=== PATIENT | male | born 1975 | race Caucasian/White ===

== ENCOUNTER 2018-05-07 10:57 | Emergency (ER) | payer MEDICARE ==
[2018-05-07] MEDS ORDERED: Lidocaine 1%* 5 ML VIAL INJ ONE (11:00)
[2018-05-07] MEDS ORDERED: ceFAZolin 1 GM ADVAN(*) 1 GM in NS 0.9% 50 ML* 50 ML IVPB ONE (11:00)
[2018-05-07] MEDS ORDERED: Morphine VIAL* 4 MG/ML VIAL (1 ml vial) IV ONE ×3 (11:03→12:38)
[2018-05-07] MEDS ORDERED: Ondansetron INJ* 2 MG/ML VIAL IV ONE (11:04)
[2018-05-07] MEDS ORDERED: NS 0.9% 50 ML* 100 ML ONE (11:12)
[2018-05-07] MEDS ORDERED: ceFAZolin 1 GM VIAL(*) ONE (11:26)
[2018-05-07] MEDS ORDERED: Lidocaine 1% INJ* 10 MG/ML 30 ML SDV ONE (11:29)
[2018-05-07] MEDS ORDERED: Bupivacaine 0.25% SDV* 30 ML INJ ONE (12:37)
--- NOTE | 2018-05-07 12:51 | ED ---
Upper Extremity Pain - HPI Summary HPI Summary: 42-year-old male presents with left hand laceration after sticking his hand in a snowblower today. He states his last tetanus was a year ago. He has limited range of motion of his distal phalanx of his left finger. He is right-handed. He is currently disabled. He is not diabetic. He admits to some numbness and tingling in the tips of his fingers. he has multiple lacerations of 2-4th fingers that are actively bleeding. - History of Current Complaint Chief Complaint: EDLacSutureRecheck Stated Complaint: FINGER LAC Time Seen by Provider: 05/07/18 10:59 - Allergies/Home Medications Allergies/Adverse Reactions: Allergies Allergy/AdvReac Type Severity Reaction Status Date / Time MS Oxycodone [Oxycodone] Allergy Intermediate Rash Verified 08/14/14 08:50 PMH/Surg Hx/FS Hx/Imm Hx Endocrine/Hematology History: Denies: Hx Diabetes, Hx Thyroid Disease Cardiovascular History: Reports: Hx Hypertension - HISTORY OF, Hx Peripheral Vascular Disease - R/T SICKNESS IN 2010 UNKNOWN ETIOLOGY, LOWER EXTREMITIES ALWAYS COLD Denies: Hx Congestive Heart Failure Comment Only: Other Cardiovascular Problems/Disorders - CARDIAC DR "WATCHING MURMUR" PER PT Respiratory History: Reports: Other Respiratory Problems/Disorders - smoker Denies: Hx Asthma, Hx Chronic Obstructive Pulmonary Disease (COPD) Comment Only: Hx Sleep Apnea - SLEEP APNEA CONSULTATION SCHEDULED FOR 06/2012 GI History: Denies: Hx Ulcer, Other GI Disorders History: Reports: Hx Acute Renal Failure - 09/2009 after septic episode, Hx Dialysis - ok now, Hx Renal Disease Comment Only: Other Problems/Disorders - renal failure with dialysis 2009 now Musculoskeletal History: Reports: Other Musculoskeletal History - 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 Sensory History: Reports: Hx Contacts or Glasses - GLASSES Denies: Hx Hearing Aid Opthamlomology History: Reports: Hx Contacts or Glasses - GLASSES Neurological History: Reports: Other Neuro Impairments/Disorders - UNKNOWN CAUSE COMA Psychiatric History: Reports: Hx Anxiety - ON MEDICATION, Hx Depression - ON MEDICATION, Hx Post Traumatic Stress Disorder - Cancer History Hx Hematologic Symptoms: Yes - overwhelming sepsis 2010 with hospitalization - Surgical History Surgery Procedure, Year, and Place: 09/2010 BIOPSY OF INNER RIGHT LEG, 4 TOES AMPUTATED RIGHT FOOT, ONE TOE AMPUTATION ON LEFT FOOT, DEBRIDEMENT OF LEFT HEEL , [facility]. [id number] SKIN GRAFT X 4 ON LEFT HEEL AND ATTEMPT OF CLOSURE ON LEFT HEEL, [facility]. 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 Substance Use Type: Reports: Marijuana, Prescribed Substance Use Comment - Amount & Last Used: morphine IR 15mg q6h, and Morphine ER 15mg BID Smoking Status (MU): Light Every Day Tobacco Smoker Type: Cigarettes Amount Used/How Often: 1/2 ppd Length of Time of Smoking/Using Tobacco: 19 years Have You Smoked in the Last Year: Yes Review of Systems Negative: Fever Negative: Chest Pain Negative: Shortness Of Breath Positive: Other - lacerations of left hand All Other Systems Reviewed And Are Negative: Yes Physical Exam Triage Information Reviewed: Yes Vital Signs On Initial Exam: Initial Vitals Temp Pulse Resp BP Pulse Ox 97 F 64 24 121/71 97 05/07/18 11:00 05/07/18 11:00 05/07/18 11:00 05/07/18 11:00 05/07/18 11:00 Vital Signs Reviewed: Yes Appearance: Positive: Well-Appearing Skin: Positive: Warm, Dry, Other - 4cm by 1cm of distal phalanx of left index finger, 3cm by 1/2cm laceration of middle phalanx of left index finger, 3cmby 1 /2cm of DIP of left ring finger, 3 3cm by 1/2cm laceration of middle finger at distal phalanx, middle and DIP of middle finger Head/Face: Positive: Normal Head/Face Inspection Eyes: Positive: Normal, Conjunctiva Clear ENT: Positive: Pharynx normal Respiratory/Lung Sounds: Positive: Clear to Auscultation, Breath Sounds Present Cardiovascular: Positive: Normal, RRR Musculoskeletal: Positive: Limited @ - distal phalanx of middle phalanx Neurological: Positive: Normal Psychiatric: Positive: Normal Procedures - Splinting left hand Location: left hand Hand-Made Type: orthoglass Splint: volar Pre-Proc Neuro Vasc Exam: normal Post-Proc Neuro Vasc Exam: normal - Laceration/Wound Repair 1 Location: Other - left index finger Description: Irregular Anesthesia: Digital, 1.0% Length, Depth and Shape: 4cm by 1cm Irrigated w/ Saline (ccs): 1,000 Closure: Single Layer Suture Type: Prolene Number of Sutures: 8 Layer Closure?: No Sterile Dressing Applied?: No - telfa, coband, xeroform 2 Location: Other - left index finger Description: Irregular Anesthesia: Digital, 1.0% Length, Depth and Shape: 3cm by 1/2cm Irrigated w/ Saline (ccs): 1,000 Closure: Single Layer Suture Type: Prolene Number of Sutures: 8 Layer Closure?: No 3 Location: Other - left distal ring finger Description: Irregular Anesthesia: Digital, 1.0%, Lido Length, Depth and Shape: 3cm x 1/2cm Betadine Prep?: Yes Irrigated w/ Saline (ccs): 1,000 Laceration/Wound Explored: no foreign body removed Closure: Single Layer Suture Type: Prolene Number of Sutures: 5 Layer Closure?: No 4 Location: Other - distal phalanx left middle finger Description: Irregular Anesthesia: Digital, 1.0% Length, Depth and Shape: 3 cm by 1/2cm Irrigated w/ Saline (ccs): 1,000 Laceration/Wound Explored: no foreign body removed Closure: Single Layer Suture Type: Prolene Number of Sutures: 6 Layer Closure?: No 5 Location: Other - left middle finger DIP Description: Irregular Anesthesia: Digital, 1.0% Length, Depth and Shape: 3cm by 1/2cm Irrigated w/ Saline (ccs): 1,000 Suture Type: Prolene Number of Sutures: 5 Layer Closure?: No 6 Location: Other - left middle finger Description: Irregular Length, Depth and Shape: 3cm by 1/2cm Irrigated w/ Saline (ccs): 1,000 Laceration/Wound Explored: no foreign body removed Suture Type: Prolene Number of Sutures: 5 Layer Closure?: No Diagnostics - Vital Signs Vital Signs Temp Pulse Resp BP Pulse Ox 05/07/18 12:40 97.8 F 81 18 102/70 96 05/07/18 11:14 16 05/07/18 11:00 97 F 64 24 121/71 97 - Laboratory Lab Statement: Any lab studies that have been ordered have been reviewed, and results considered in the medical decision making process. - Radiology hand Radiology Interpretation Completed By: Radiologist Summary of Radiographic Findings: IMPRESSION: FRACTURES OF THE MIDDLE PHALANGES OF THE THIRD AND FOURTH DIGITS AND THE DISTAL PHALANX OF. THE THIRD DIGIT. Course/Dx - Course Course Of Treatment: 42-year-old male presents with left hand laceration after sticking his hand in a snowblower today. He states his last tetanus was a year ago. He has limited range of motion of his distal phalanx of his left finger. He is right-handed. He is currently disabled. He is not diabetic. He admits to some numbness and tingling in the tips of his fingers. he has multiple lacerations of 2-4th fingers that are actively bleeding. on exam has 2 lacerations on left index finger closed with 8 sutures each. 3 lacerations on left middle finger that closed with 6 on one and 5 on other two. 1 laceration on left ring finger with 5 sutures laceration closure performed Tatiana Ricketts for this laceration only. xray shows 3 and 4th finger fractures. has limited ROM of middle finger so discussed with dr menchaca who will take to OR thursday. gave dose of ancef and will discharge with keflex. placed in volvar splint after wrapping each finger with xeroform, coband, and telfa. patient understand and agrees with plan. - Diagnoses Differential Diagnosis/HQI/PQRI: Positive: Fracture (Open), Laceration, Other - abrasion Provider Diagnoses: Laceration of multiple sites of left hand and fingers, Open fractures of multiple sites of phalanx of left hand Discharge - Sign-Out/Discharge Documenting (check all that apply): Patient Departure - Discharge Plan Condition: Good Disposition: HOME Prescriptions: Cephalexin CAP* [Keflex CAP*] 500 mg PO BID #14 cap Hydrocodone/APAP 5/300 (NF) [Vicodin 5 MG/300 MG(NF)] 1 tab PO Q4H PRN #20 tab MDD 6 PRN Reason: Pain Patient Education Materials: [facility] Your [facility] (ED) Referrals: Sully Isaac MD [Primary Care Provider] - Shivam Menchaca MD [Medical Doctor] - Additional Instructions: call Thursday for appointment time on Thursday, will likely have surgery in the afternoon on Thursday take keflex twice a day for 7 days Keep splint on area and keep dry Use ibuprofen for pain every 6 hours and use narcotic for breakthrough pain every 6 hours suture removal in 10-14 days Ice, elevate Return to ED if develop any new or worsening symptoms - Billing Disposition and Condition Condition: GOOD Disposition: Home
[2018-05-07] MEDS ORDERED: Bupivacaine 0.25% SDV PF* 10 ML VIAL INJ ONE (13:00)
[2018-05-07 14:30] VITALS: BP 108/85
== END 2018-05-07 14:29 | disposition home or self-care (01) ==
LOC: ED 10:57
DX: S62.653B Nondisplaced fracture of middle phalanx of left middle finger, initial encounter for open fracture (principal); S62.655B Nondisplaced fracture of middle phalanx of left ring finger, initial encounter for open fracture; S62.663B Nondisplaced fracture of distal phalanx of left middle finger, initial encounter for open fracture; S61.211A Laceration without foreign body of left index finger without damage to nail, initial encounter; W26.8XXA Contact with other sharp object(s), not elsewhere classified, initial encounter; Y93.29 Activity, other involving ice and snow; Y92.9 Unspecified place or not applicable; F41.9 Anxiety disorder, unspecified; F32.9 Major depressive disorder, single episode, unspecified; Z89.422 Acquired absence of other left toe(s); Z89.421 Acquired absence of other right toe(s); Z88.5 Allergy status to narcotic agent; F17.210 Nicotine dependence, cigarettes, uncomplicated
CPT/HCPCS: 12005; 96374; 96375; 96376; 99282; J0690; J2270; J2405; J3490

== ENCOUNTER 2018-05-08 11:39 | Emergency (ER) | payer MEDICARE ==
--- NOTE | 2018-05-08 12:45 | ED ---
Laceration/Wound HPI - HPI Summary HPI Summary: 42 year male presents with left hand bleeding since last night. He states that he bumped his hand last night after it was sutured and splinted here. He denies any numbness or tingling. No increase in pain. He is currently taking his antibiotics. No fevers. - History of Current Complaint Stated Complaint: LT HAND INJURY Time Seen by Provider: 05/08/18 12:11 Pain Intensity: 6 - Allergy/Home Medications Allergies/Adverse Reactions: Allergies Allergy/AdvReac Type Severity Reaction Status Date / Time No Known Allergies Allergy Verified 05/08/18 11:58 PMH/Surg Hx/FS Hx/Imm Hx Endocrine/Hematology History: Denies: Hx Diabetes, Hx Thyroid Disease Cardiovascular History: Reports: Hx Hypertension - HISTORY OF, Hx Peripheral Vascular Disease - R/T SICKNESS IN 2010 UNKNOWN ETIOLOGY, LOWER EXTREMITIES ALWAYS COLD Denies: Hx Congestive Heart Failure Comment Only: Other Cardiovascular Problems/Disorders - CARDIAC DR "WATCHING MURMUR" PER PT Respiratory History: Reports: Other Respiratory Problems/Disorders - smoker Denies: Hx Asthma, Hx Chronic Obstructive Pulmonary Disease (COPD) Comment Only: Hx Sleep Apnea - SLEEP APNEA CONSULTATION SCHEDULED FOR 06/2012 GI History: Denies: Hx Ulcer, Other GI Disorders History: Reports: Hx Acute Renal Failure - 09/2009 after septic episode, Hx Dialysis - ok now, Hx Renal Disease Comment Only: Other Problems/Disorders - renal failure with dialysis 2009 Musculoskeletal History: Reports: Other Musculoskeletal History - 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 Sensory History: Reports: Hx Contacts or Glasses - GLASSES Denies: Hx Hearing Aid Opthamlomology History: Reports: Hx Contacts or Glasses - GLASSES Neurological History: Reports: Other Neuro Impairments/Disorders - UNKNOWN CAUSE COMA Psychiatric History: Reports: Hx Anxiety - ON MEDICATION, Hx Depression - ON MEDICATION, Hx Post Traumatic Stress Disorder - Cancer History Hx Hematologic Symptoms: Yes - overwhelming sepsis 2010 with hospitalization - Surgical History Surgery Procedure, Year, and Place: 09/2010 BIOPSY OF INNER RIGHT LEG, 4 TOES AMPUTATED RIGHT FOOT, ONE TOE AMPUTATION ON LEFT FOOT, DEBRIDEMENT OF LEFT HEEL , [facility]. [id number] SKIN GRAFT X 4 ON LEFT HEEL AND ATTEMPT OF CLOSURE ON LEFT HEEL, [facility]. 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 Substance Use Type: Reports: Marijuana, Prescribed Substance Use Comment - Amount & Last Used: morphine IR 15mg q6h, and Morphine ER 15mg BID Smoking Status (MU): Light Every Day Tobacco Smoker Type: Cigarettes Amount Used/How Often: 1/2 ppd Length of Time of Smoking/Using Tobacco: 19 years Have You Smoked in the Last Year: Yes Review of Systems Negative: Fever Negative: Chest Pain Negative: Shortness Of Breath Positive: Other - left hand bleeding All Other Systems Reviewed And Are Negative: Yes Physical Exam Triage Information Reviewed: Yes Vital Signs On Initial Exam: Initial Vitals Temp Pulse Resp BP Pulse Ox 97.5 F 105 22 146/97 99 05/08/18 11:51 05/08/18 11:51 05/08/18 11:51 05/08/18 11:51 05/08/18 11:51 Vital Signs Reviewed: Yes Appearance: Positive: Well-Appearing Skin: Positive: Warm, Dry Head/Face: Positive: Normal Head/Face Inspection Eyes: Positive: Normal, Conjunctiva Clear ENT: Positive: Pharynx normal Respiratory/Lung Sounds: Positive: Clear to Auscultation, Breath Sounds Present Cardiovascular: Positive: Normal, RRR Musculoskeletal: Positive: Other - left hand in splint with old blood on left middle finger, after removed splint on active bleeding noted. capillary refill< 2 secs Neurological: Positive: Normal Psychiatric: Positive: Normal Procedures - Splinting left hand Location: left hand Hand-Made Type: orthoglass Splint: dorsal splint too Pre-Proc Neuro Vasc Exam: normal Post-Proc Neuro Vasc Exam: normal Diagnostics - Vital Signs Vital Signs Temp Pulse Resp BP Pulse Ox 05/08/18 12:25 97.7 F 87 16 129/90 97 05/08/18 11:51 97.5 F 105 22 146/97 99 - Laboratory Lab Statement: Any lab studies that have been ordered have been reviewed, and results considered in the medical decision making process. Laceration Repair Course/Dx - Course Course Of Treatment: 42 year male presents with left hand bleeding since last night. He states that he bumped his hand last night after it was sutured and splinted here. He denies any numbness or tingling. No increase in pain. He is currently taking his antibiotics. No fevers. On exam has splint in place with old blood present on left middle finger. Removed splint and no active bleeding noted from the middle finger. replaced in pressure dressing. placed dorsal and volvar splint to protect finger. told to keep appointment with ortho. patient understand and agrees with plan. - Differential Dx Differental Diagnoses: Healing Wound, Other - dehiensce - Clinical Impression Provider Diagnoses: Visit for wound check Discharge - Sign-Out/Discharge Documenting (check all that apply): Patient Departure - Discharge Plan Condition: Good Disposition: HOME Patient Education Materials: [facility] (ED) Referrals: Sully Isaac MD [Primary Care Provider] - Additional Instructions: follow up with ortho as scheduled elevate extremity return to ED if develop any new or worsening symptoms - Billing Disposition and Condition Condition: GOOD Disposition: Home
[2018-05-08 13:04] VITALS: BP 130/98
== END 2018-05-08 13:04 | disposition home or self-care (01) ==
LOC: ED 11:39
DX: Z48.00 Encounter for change or removal of nonsurgical wound dressing (principal); I10 Essential (primary) hypertension; F32.9 Major depressive disorder, single episode, unspecified; F41.9 Anxiety disorder, unspecified; I73.9 Peripheral vascular disease, unspecified; F17.210 Nicotine dependence, cigarettes, uncomplicated
CPT/HCPCS: 99281

== ENCOUNTER 2018-05-11 13:10 | Day surgery (SDC) | payer MEDICAID, MEDICARE ==
[~2018-05-11 13:10] MED LIST: Buffered Lidocaine 0.9% SYRIN* 5 ML/SYR SYRINGE INTRADERM ONE; Famotidine IV* 10 MG/ML 2 ML (20 mg) IV ONE
[2018-05-11] MEDS ORDERED: Famotidine IV* 10 MG/ML 2 ML (20 mg) ONE (13:41)
[2018-05-11] MEDS ORDERED: ceFAZolin 2 GM PREMIX in ORs 2 GM/50 ML BAG IVPB ONE (13:43)
[2018-05-11] MEDS ORDERED: Ketorolac INJ* 30 MG/ML 1 ML VIAL ONE (14:03)
[2018-05-11] MEDS ORDERED: Ondansetron INJ* 2 MG/ML VIAL ONE (14:03)
[2018-05-11] MEDS ORDERED: fentaNYL* 50 MCG/ML 5 ML VIAL (250 MCG VIAL) ONE (14:03)
[2018-05-11] MEDS ORDERED: KETAMINE HCL* 50 MG/ML 10 ML VIAL ONE (14:03)
[2018-05-11] MEDS ORDERED: Dexamethasone IV* 4 MG/ML 1 ML (4 MG) ONE (14:03)
[2018-05-11] MEDS ORDERED: Propofol* 10 MG/ML 20 ML BTL IV PUSH ONE (14:03)
[2018-05-11] MEDS ORDERED: Midazolam* 1 MG/ML 5 ML VIAL (5 MG) ONE (14:04)
[2018-05-11] MEDS ORDERED: Cisatracurium* 2 MG/ML MDV 5 ML ONE (15:20)
[2018-05-11] MEDS ORDERED: EPHEDrine (Pressors)* 50 MG/ML VIAL ONE (15:41)
[2018-05-11] MEDS ORDERED: Phenylephrine INJ* 10 MG/ML 1 ML VIAL (10 MG) ONE (15:48)
[2018-05-11] MEDS ORDERED: Bupivacaine 0.25% SDV PF* 10 ML VIAL INJ ONE (16:00)
[2018-05-11] MEDS ORDERED: fentaNYL* 50 MCG/ML 2 ML VIAL (100 MCG VIAL) IV PRN (17:31)
[2018-05-11] MEDS ORDERED: Ondansetron INJ* 2 MG/ML VIAL IV PRN (17:31)
[2018-05-11] MEDS ORDERED: oxyCODONE/Acetamin 5/325 MG* TAB PO PRN (17:31)
[2018-05-11] MEDS ORDERED: Naloxone* 0.4 MG/ML 1 ML VIAL IV PRN (17:31)
[2018-05-11 19:04] VITALS: BP 135/95
--- NOTE | 2018-05-12 10:31 | OP ---
OPERATIVE REPORT: DATE OF OPERATION: 05/11/18 DATE OF : 77 SURGEON: Shivam Ramon MD [employer]ING MACHINE OPERATOR: JOSEFINA Aranda An billing assistant was needed to aid in positioning of the arm and retraction. ANESTHESIOLOGIST: Dr. Lin. ANESTHESIA: General. PRE-OP DIAGNOSES: 1. Left index, middle and ring finger multiple lacerations secondary to snowblower injury. 2. Left middle finger open middle phalanx fracture. 3. Left ring finger open middle phalanx displaced fracture. POST-OP DIAGNOSES: 1. Left index, middle and ring finger multiple lacerations secondary to snowblower injury. 2. Left middle finger open middle phalanx fracture. 3. Left ring finger open middle phalanx displaced fracture OPERATIVE PROCEDURES: 1. Exploration of digital nerves and flexor tendons, left index, middle and ring finger penetrating injuries. Please note that the exploration of the 6 digital nerves took quite some time. 2. Debridement of skin, subcutaneous tissue and fascia and removal of foreign material left index finger. 3. Debridement of left index finger partial flexor tendon laceration, partial zone 1 flexor tendon laceration. 4. Debridement of skin, subcutaneous tissue and fascia with removal of foreign material, left middle finger open middle phalanx fracture. 5. Debridement of skin, subcutaneous tissue and fascia, left ring finger open middle phalanx fracture with removal of foreign material. 6. Open reduction internal fixation, left ring finger, displaced middle phalanx fracture. 7. Closed treatment of left middle finger, nondisplaced middle phalanx fracture. 8. Closure of traumatic wounds, left index finger x2, left middle finger x3, and left ring finger x1. These were complex closures with 6 wounds and a total length measuring 8-10 cm. INDICATIONS: Efra had a complex snowblower hand injury sustained last Thursday. He was washed out and closed provisionally, loosely in the emergency room and started on antibiotics. I saw him this morning in the office and we came to surgery this afternoon 4 days out from the injury. Given the multiple transverse lacerations on the left index and middle fingers, I was highly concerned for neurovascular injury as well as flexor tendon injury, additionally there was a highly displaced ring finger middle phalanx fracture with some concern for bone loss and I was very concerned for tendon and neurovascular injury in the ring finger. Certainly, there was diminished perfusion, especially to the middle finger; however, the finger was still viable 4 days out from the injury and although a bit dusky at the tip, it did appear to be viable. Certainly, he understands the risk of devascularization of the finger and the risk of a partial amputation of the finger. He was consented for a partial amputation should need be. He understands the risk of a stiff hand, he understands the risk of infection. ESTIMATED BLOOD LOSS: 10 mL COMPLICATIONS: None. FINDINGS: See above and below. DESCRIPTION OF PROCEDURE: Efra was seen in the preoperative holding area. The correct site, side, and procedure were identified. We came back to the operating room where the arm was prepped and draped in the usual fashion. A thorough Betadine scrub was performed. A timeout was performed. The arm was exsanguinated with the Esmarch and the tourniquet was inflated to 250 mmHg. I began on the index finger and on the index finger, he had 2 transverse lacerations, one just distal to the DIP flexion crease and the other slightly oblique and about a centimeter proximal to the more distal laceration with just a small soft tissue holding the flap on the ulnar aspect. I went ahead and released this and raised a radially based full thickness flap off the flexor tendon. A partial tendon laceration was identified on the ulnar aspect of the FDP tendon just proximal to the distal interphalangeal joint. I debrided back this with the tenotomy scissors and sharply with a knife until I had a nice, smooth flexor tendon that remained. I then turned my attention to the radial digital nerve followed by the ulnar digital nerve. These were explored. They were clearly contused, however, they were in continuity. The ulnar digital artery was thrombosed deep to the digital nerve. I performed minimal dissection around the radial digital nerve and artery so as to minimize any chance of devascularizing the finger or the flap. I took some time and sharply under 3.5 times loupe magnification, debrided all the foreign material, gravel from the wound and did this sharply with knife and tenotomy scissors until everything was completely clean, I debrided back the skin edges until they were back to completely healthy skin edges. The two 1.5 cm traumatic wounds were then closed with 4-0 nylon suture. We then came to the middle finger and we did not actually make any new incisions on the volar aspect of the middle finger, but instead worked through the 3 transverse lacerations present on the middle finger to debride the skin edges and subcutaneous tissue. The flexor tendon sheath was damaged, however, the flexor tendon appeared to be intact. The tendon sheath was debrided back as was some fascia. The digital nerve was explored in the proximal followed by the middle and finally in the distal wound. The trifurcation of the ulnar digital nerve could be seen in the distal wound out on the finger tip and a couple of the small branches were avulsed and injured; however, other than that both the radial and ulnar digital nerves at the middle finger were in continuity. Ultimately, all foreign material was debrided and everything was looking nice and healthy in the area of the fracture and throughout the finger. We closed all three 1.5 cm wounds with 4- 0 nylon suture. I then turned my attention to the ring finger. There was 1 transverse wound over the distal aspect of the middle phalanx. I debrided again the skin, subcutaneous tissue and some flexor tendon sheath that was damaged. The tendon deep to that was intact. Both digital nerves were intact, although again all of the digital nerves really looked a bit contused, but they were in continuity. Again, the ulnar digital artery was visualized and it was thrombosed deep to the digital nerve. The debridement was completed when everything was looking nice and clean in the area of the open fracture. We closed the traumatic wounds with 4-0 nylon suture. The fracture was reduced. We performed internal fixation with a 0.045 mm K- wire from distal radial to proximal ulnar. I attempted to place a second K- wire from distal ulnar to proximal radial; however, there was enough space and any further instrumentation would have displaced the fracture that was nicely reduced. There was not really much rotational instability. I did not think a second wire was needed and so I bent and clipped the first wire. At this point, I looked at the middle phalanx fracture under mini C arm fluoroscopy, it was anatomically aligned. He is going to be immobilized for a period of a few weeks any ways and so I elected not to perform any internal fixation of the fracture and to rather treat this closed. At this point, everything was looking good, so we washed the hand. The traumatic wounds had all been closed. I already placed some 0.25% Marcaine proximally at the beginning of the case as digital blocks. The site was nicely dressed with Xeroform. Wounds were all dressed with Xeroform, 4x4, sterile Webril and then a short arm splint with the hand in the intrinsic-plus position was applied with both dorsal and volar plaster slabs. The fingers did pink up. He was taken to the recovery room in stable condition. [id number]/CPS #: [id number] MTDD
== END 2018-05-11 19:13 | disposition home or self-care (01) ==
LOC: OR 13:10
PROVIDERS: ATTEND Orthopaedic Surgery Hand Surgery
DX: S62.623B Displaced fracture of middle phalanx of left middle finger, initial encounter for open fracture (principal); S62.625B Displaced fracture of middle phalanx of left ring finger, initial encounter for open fracture; S61.221A Laceration with foreign body of left index finger without damage to nail, initial encounter; S61.223A Laceration with foreign body of left middle finger without damage to nail, initial encounter; S61.225A Laceration with foreign body of left ring finger without damage to nail, initial encounter; W31.89XA Contact with other specified machinery, initial encounter; Y93.29 Activity, other involving ice and snow; Y92.89 Other specified places as the place of occurrence of the external cause; F41.8 Other specified anxiety disorders; F43.10 Post-traumatic stress disorder, unspecified; G47.33 Obstructive sleep apnea (adult) (pediatric); Z72.0 Tobacco use
CPT/HCPCS: 36415; 76000; 80053; 85025; C1776; J0690; J1100; J1885; J2250; J2405; J2704; J3010; J3490